=== PATIENT | female | born 1960 | race Caucasian/White ===

== ENCOUNTER → 2019-08-08 | Outpatient (CLI) | payer BC, SELFPAY | PROVIDERS: Family Provider Registered Nurse; Visit Provider Registered Nurse | DX: R06.02 Shortness of breath (principal) | CPT/HCPCS: 78452; 93017; A9500; J2785 ==

== ENCOUNTER 2020-02-08 11:57 | Outpatient (CLI) | payer BC, SELFPAY ==
--- NOTE | 2020-02-08 12:10 | XRR_ITS ---
PROCEDURE INFORMATION: Exam: XR Abdomen, 1 View Exam date and time: 02/08/2020 12:31 PM Age: 59 years old Clinical indication: Patient HX: Possible stones; Hematuria TECHNIQUE: Imaging protocol: XR of the abdomen. Views: Frontal supine view of the abdomen. 1 View. COMPARISON: No relevant prior studies available. FINDINGS: Gastrointestinal tract: The bowel gas pattern is nonspecific. Air filled large bowel including distal rectal gas. Organs: No calcifications are seen overlying the renal outlines or the expected course of the left ureters. No suspicious calcifications within the pelvis. Consider CT if indicated. Bones/joints: Unremarkable. XR/XR [id number] IMPRESSION: 1. The bowel gas pattern is nonspecific. Air filled large bowel including distal rectal gas. 2. No calcifications are seen overlying the renal outlines or the expected course of the left ureters. No suspicious calcifications within the pelvis. Consider CT if indicated.
== END 2020-02-08 11:58 | disposition home or self-care (01) ==
LOC: RAD 12:01
PROVIDERS: PCP Registered Nurse; Visit Provider Registered Nurse
DX: R31.9 Hematuria, unspecified (principal)
CPT/HCPCS: 74018; 80053; 81000; 88112

== ENCOUNTER → 2020-02-21 16:26 | Outpatient (BNVA) | payer BC, SELFPAY | PROVIDERS: PCP Registered Nurse; Visit Provider Registered Nurse | DX: R31.9 Hematuria, unspecified (principal) | CPT/HCPCS: 80053 ==

== ENCOUNTER → 2020-02-22 14:00 | Outpatient (BNVA) | payer BC, SELFPAY | PROVIDERS: PCP Registered Nurse; Visit Provider Registered Nurse | DX: R31.9 Hematuria, unspecified (principal) | CPT/HCPCS: 88112 ==

== ENCOUNTER → 2020-07-10 09:07 | Outpatient (BNVA) | payer BC, SELFPAY | PROVIDERS: PCP Registered Nurse; Visit Provider Registered Nurse | DX: E55.9 Vitamin D deficiency, unspecified (principal); I10 Essential (primary) hypertension; M17.0 Bilateral primary osteoarthritis of knee | CPT/HCPCS: 80053; 80061; 82306; 83036; 85025 ==

== ENCOUNTER 2021-03-06 14:36 | Outpatient (CLI) | payer BC, SELFPAY ==
--- NOTE | 2021-03-06 14:40 | MM_ITS ---
WS: [id number] BILATERAL DIGITAL SCREENING MAMMOGRAPHY WITH CAD CLINICAL INFORMATION: SCREENING HISTORY: Screening mammogram. No current complaints. COMPARISON: TECHNIQUE: Bilateral CC and MLO views. FINDINGS: Scattered fibroglandular densities bilaterally. A few stable left intramammary lymph nodes. A few tin y punctate calcifications. No suspicious focal mass, asymmetry, calcifications, or architectural dist ortion. No evidence of malignancy. MM/[place] [id number] IMPRESSION: BI-RADS: 2-Benign FOLLOW UP: 1 Year Follow-up Recommend return to annual screening mammography.
== END 2021-03-06 14:37 | disposition home or self-care (01) ==
LOC: RADSHAW 14:39
PROVIDERS: PCP Registered Nurse; Visit Provider Registered Nurse
DX: Z12.31 Encounter for screening mammogram for malignant neoplasm of breast (principal)
CPT/HCPCS: 77067

== ENCOUNTER → 2021-03-10 14:23 | Outpatient (BNVA) | payer BC, SELFPAY | PROVIDERS: PCP Registered Nurse; Visit Provider Registered Nurse | DX: J06.9 Acute upper respiratory infection, unspecified (principal); J01.40 Acute pansinusitis, unspecified; H10.9 Unspecified conjunctivitis | CPT/HCPCS: 87635 ==

== ENCOUNTER → 2021-07-07 09:16 | Outpatient (BNVA) | payer BC, SELFPAY | PROVIDERS: PCP Registered Nurse; Visit Provider Registered Nurse | DX: Z00.00 Encounter for general adult medical examination without abnormal findings (principal); I10 Essential (primary) hypertension; E53.8 Deficiency of other specified B group vitamins; E03.9 Hypothyroidism, unspecified; E55.9 Vitamin D deficiency, unspecified; E78.5 Hyperlipidemia, unspecified; Z68.43 Body mass index [BMI] 50.0-59.9, adult | CPT/HCPCS: 80053; 80061; 82306; 82607; 84443; 85025 ==

== ENCOUNTER → 2021-07-10 08:56 | Outpatient (BNVA) | payer BC, SELFPAY | PROVIDERS: PCP Registered Nurse; Visit Provider Registered Nurse | DX: R73.9 Hyperglycemia, unspecified (principal) | CPT/HCPCS: 83036 ==

== ENCOUNTER → 2022-02-03 09:48 | Outpatient (BNVA) | payer MEDICAID, SELFPAY | PROVIDERS: PCP Registered Nurse; Visit Provider Registered Nurse | DX: R31.9 Hematuria, unspecified (principal); N95.0 Postmenopausal bleeding | CPT/HCPCS: 81000 ==

== ENCOUNTER 2022-02-25 11:40 | Outpatient (CLI) | payer MEDICAID, SELFPAY ==
--- NOTE | 2022-02-25 11:45 | US_ITS ---
WS: [id number] TRANSVAGINAL PELVIC ULTRASOUND HISTORY: N95.0 - Postmenopausal bleeding COMPARISON: 08/17/2014 Quality of this examination is suboptimal. Uterus: 8.0 cm x 5.0 cm x 4.7 cm. Anteverted uterus. There is a large amount of shadowing with obscur ation of the myometrium. Fibroids cannot be excluded. Very poor definition of the myometrium. Endometrium: 1.6 cm. Abnormal heterogeneity throughout the endometrial canal. Variable echogenicity w ith poor definition of the junctional zone. There is a small amount of increased skeletal aortic with in the periphery of the endometrium. The abnormal echogenicity extends into the endocervical canal. T here is a small nabothian cysts. Right ovary: 2.1 cm x 1.3 cm x 1.8 cm. Normal size ovary with a small follicle. No solid mass. Normal vascularity. Left ovary: Not visualized. No adnexal mass. No free fluid. US/US transvaginal [id number] IMPRESSION: 1. Abnormal endometrium. Thickened, heterogeneous endometrium with mild increa sed vascularity. Abnormal thickening extends into the lower endocervical segmen t. Endometrial neoplasm needs to be excluded. Recommend hysteroscopy with biops y. 2. Limited evaluation of the myometrium. 3. LEFT ovary not visualized.
== END 2022-02-25 11:41 | disposition home or self-care (01) ==
LOC: RAD 11:41
PROVIDERS: PCP Registered Nurse; Visit Provider Registered Nurse
DX: N95.0 Postmenopausal bleeding (principal); R93.89 Abnormal findings on diagnostic imaging of other specified body structures
CPT/HCPCS: 76830